=== PATIENT | male | born 1970 | race Two or more races ===

== ENCOUNTER 2018-11-07 18:38 | Inpatient (IN) | payer SELFPAY ==
[~2018-11-07] VITALS: Ht 182.9 cm; Wt 108.2 kg
[2018-11-07 20:05] LABS: Basophils # (auto) 0.1 uL; Eosinophils # (auto) 0 uL; Hemoglobin 13.4 g/dL (13.5-17.5)
[2018-11-07 20:07] LABS: Basophils % (auto) 0.7 % (0.0-2.0); Eosinophils % (auto) 0.2 % (0.0-7.0); Hematocrit 42.2 % (41.0-53.0); Lymphocytes # (auto) 1.4 uL; Lymphocytes % (auto) 8.8 % (10.0-50.0); Mean Corpuscular Hemoglobin 26.9 pg (28.0-32.0); Mean Corpuscular Hgb Conc. 31.8 g/dL (32.0-36.0); Mean Corpuscular Volume 84.7 fL (80.0-100.0); Monocytes # (auto) 1.6 uL; Monocytes % (auto) 10.3 % (0.0-12.0); Neutrophils # (auto) 12.7 uL; Red Blood Cells 4.99 10^6/uL (4.5-5.90); Red Cell Distribution Width 13.6 % (11.8-14.3); White Blood Cell 15.9 10^3/uL (4.4-10.8)
[2018-11-07 20:20] LABS: Albumin 2.9 g/dL (3.4-5.0); Anion Gap 20 (5-15); BUN/Creatinine Ratio 12.8; Blood Urea Nitrogen 14 mg/dL (7-18); Calcium 8.9 mg/dL (8.5-10.1); Carbon Dioxide 13 mmol/L (21-32); Chloride 99 mmol/L (98-107); GFR African American 93 mL/min; GFR Non-African American 77 mL/min; Magnesium 2.1 mg/dL (1.6-2.6); Potassium 4.1 mmol/L (3.5-5.1); Sodium 132 mmol/L (136-145)
[2018-11-07 20:37] LABS: Glucose 456 mg/dL (74-106)
[2018-11-07 20:50] LABS: Alanine Aminotransferase 46 U/L (16-61); Alkaline Phosphatase 132 U/L (45-117); Aspartate Aminotransferase 18 U/L (15-37); Bilirubin, Total 0.9 mg/dL (0.2-1.0); Total Protein 8.7 g/dL (6.4-8.2)
[2018-11-07 21:12] LABS: Platelet Count (auto) 532 10^3/uL (140-450)
[2018-11-08] MEDS ORDERED: SODIUM CHLORIDE 0.9% 1,000 ML IV ONE (05:30)
[2018-11-08] MEDS ORDERED: InsuLIN REG 1unit/0.01ml Soln (100units/ml) IV ONE (05:30)
[2018-11-08 05:56] LABS: Urine Amorphous Crystal FEW /hpf (None Seen); Urine Bacteria FEW /hpf (None Seen); Urine Blood Negative /uL (Negative); Urine Hyaline Cast FEW /lpf (0 - 2); Urine Specific Gravity 1.032 (1.001-1.035); Urine WBC 1 /hpf (0 - 3)
[2018-11-08] MEDS ORDERED: ACETAMINOPHEN 325 MG TAB PO PRN (07:45)
[2018-11-08] MEDS ORDERED: ONDANSETRON HCL 4 MG/2 ML VIAL IV PRN (07:45)
[2018-11-08] MEDS ORDERED: TEMAZEPAM 15 MG CAP PO PRN (07:45)
[2018-11-08] MEDS ORDERED: NITROGLYCERIN 0.4 MG SL TAB SL PRN (07:45)
[2018-11-08] MEDS ORDERED: MORPHINE SULF INJ 2 MG/ML SYRINGE 1ML IV PRN (07:45)
[2018-11-08] MEDS ORDERED: DEXTROSE (50%) 50ML SYRG IV PRN (09:30)
[2018-11-08] MEDS: METOPROLOL TARTRATE 25 MG TAB PO SCH ×3 (10:17→22:15)
[2018-11-08] MEDS: ASPirin 81 mg TAB PO SCH (10:17)
[2018-11-08] MEDS: FAMOTIDINE 20 MG TAB PO SCH ×2 (10:18→22:16)
[2018-11-08] MEDS: InsuLIN REG 1unit/0.01ml Soln (100units/ml) SC SCH ×3 (11:47→22:31)
[2018-11-08] MEDS: ACCU-CHEK COMFORT CURVE STRIP VI SCH ×3 (11:48→22:16)
--- NOTE | 2018-11-08 12:15 | NUR ---
PATIENT RECEIVED FROM ER The patient is received alert and oriented times four with no SOB or s/s of distress at this time. The patient is resting in bed in the lowest position with call light within reach, will continue to monitor and POC.
[2018-11-08 13:00] VITALS: BP 142/82
[2018-11-08] MEDS ORDERED: IOHEXOL 350 MG/ML 100ML IJ ONE ×2 (13:52→14:33)
[2018-11-08] MEDS ORDERED: METF-929 PO (14:08)
[2018-11-08] MEDS ORDERED: PIOG1TAB37 PO (14:08)
[2018-11-08 14:36] LABS: Cholesterol 95 mg/dL (< 200); Triglycerides 62 mg/dL (< 150)
[2018-11-08 14:39] LABS: HDL Cholesterol 30 mg/dL (40-59); LDL Cholesterol 56 mg/dL (< 100)
--- NOTE | 2018-11-08 15:06 | NUR ---
Respiratory note: DR. LOOMIS PAGED REGARDING CRITICAL ABG RESULTS.
[2018-11-08 15:10] VITALS: BP_SYST 116; BP_SYST 125; BP_SYST 136; BP_DIAS 78; BP_DIAS 83; BP_DIAS 86
[2018-11-08 16:36] LABS: BUN/Creatinine Ratio 13.3; Calcium 8.6 mg/dL (8.5-10.1); Potassium 3.7 mmol/L (3.5-5.1)
[2018-11-08 17:00] VITALS: BP 124/88
--- NOTE | 2018-11-08 19:40 | NUR ---
Opening Shift Note Assumed care of patient, awake and alert. Family at bedside. No S/S of distress/SOB or pain. Bed in lowest locked position, side rails up x2, call light within reach. Instructed on POC and to call for assist PRN, will continue to monitor for changes Q1hr and PRN.
[2018-11-08 21:00] VITALS: BP 125/85
[2018-11-08] MEDS: ATORVASTATIN 20 MG TAB PO SCH (22:15)
[2018-11-09 04:30] VITALS: BP 117/70
[2018-11-09] MEDS: InsuLIN REG 1unit/0.01ml Soln (100units/ml) SC SCH ×4 (06:27→21:15)
[2018-11-09] MEDS: ACCU-CHEK COMFORT CURVE STRIP VI SCH ×4 (06:27→21:01)
--- NOTE | 2018-11-09 06:42 | NUR ---
Closing Note Patient lying in bed, awake and alert. Bed in lowest locked position, side rails up x2, call light within reach. No s/s of distress. Will endorse care to dayshift RN.
[2018-11-09 07:16] LABS: Calcium 8.3 mg/dL (8.5-10.1); Potassium 3.3 mmol/L (3.5-5.1)
[2018-11-09 07:18] LABS: Basophils # (auto) 0.1 uL; Basophils % (auto) 0.6 % (0.0-2.0); Eosinophils # (auto) 0.1 uL; Hematocrit 35.8 % (41.0-53.0); Lymphocytes # (auto) 2.1 uL; Lymphocytes % (auto) 18.8 % (10.0-50.0); Mean Corpuscular Hemoglobin 27.4 pg (28.0-32.0); Mean Corpuscular Hgb Conc. 33.5 g/dL (32.0-36.0); Mean Corpuscular Volume 81.8 fL (80.0-100.0); Monocytes # (auto) 1.1 uL; Monocytes % (auto) 9.8 % (0.0-12.0); Neutrophils # (auto) 7.6 uL; Neutrophils % (auto) 69.8 % (37.0-80.0); Nucleated Red Blood Cells % 0.1 %; Platelet Count (auto) 423 10^3/uL (140-450); Red Blood Cells 4.37 10^6/uL (4.5-5.90); Red Cell Distribution Width 13.5 % (11.8-14.3); White Blood Cell 10.9 10^3/uL (4.4-10.8)
--- NOTE | 2018-11-09 07:30 | NUR ---
Opening Shift Note Assumed care of patient, awake and alert. No S/S of distress/SOB or pain. Instructed on POC and to call for assist PRN, will continue to monitor. Bed locked in the lowest position. Bed rails up x2. Call light in reach.
[2018-11-09] MEDS: FAMOTIDINE 20 MG TAB PO SCH ×2 (08:59→20:59)
[2018-11-09 09:00] VITALS: BP_SYST 124; BP_SYST 140; BP_DIAS 74; BP_DIAS 77
[2018-11-09] MEDS: ASPirin 81 mg TAB PO SCH (09:00)
[2018-11-09] MEDS: METOPROLOL TARTRATE 25 MG TAB PO SCH ×2 (09:01→21:00)
[2018-11-09 10:01] VITALS: BP 131/81
--- NOTE | 2018-11-09 10:59 | NUR ---
MD AWARE MD AWARE OF PATIENTS POTASSIUM OF 3.3. NEW ORDER RECEIVED. ORDER READ BACK AND VERIFIED.
[2018-11-09] MEDS ORDERED: POTASSIUM CHL 20 Meq TABLET PO ONE (11:00)
--- NOTE | 2018-11-09 11:35 | NUR ---
AWARE DR. LOYN AWARE OF PATIENTS TRENDING BLOOD GLUCOSE. NO NEW ORDERS RECEIVED.
[2018-11-09 13:00] VITALS: BP_SYST 108; BP_SYST 123; BP_SYST 125; BP_DIAS 76; BP_DIAS 79; BP_DIAS 84
--- NOTE | 2018-11-09 13:07 | NUR ---
DRUG SCREEN URINE OBTAINED AND SENT TO LAB.
[2018-11-09 14:08] LABS: Alcohol, Urine < 3.0 mg/dL (0-5); Amphetamine Screen, Urine NEGATIVE (NEGATIVE); Barbiturate Scree,Urine NEGATIVE (NEGATIVE); Benzodiazephine Screen, Urine NEGATIVE (NEGATIVE); Cannabinoid Screen, Urine NEGATIVE (NEGATIVE); Cocaine Screen, Urine NEGATIVE (NEGATIVE); Opiate Scree,Urine NEGATIVE (NEGATIVE); Phencyclidine Screen, Urine NEGATIVE (NEGATIVE)
[2018-11-09 16:42] VITALS: BP 132/83
--- NOTE | 2018-11-09 19:05 | NUR ---
CLOSING NOTE Patient is awake and alert. No S/S of distress/SOB or pain. Bed locked in the lowest position. Bed rails up x2. Call light in reach. Endorsed care to business development recruiter RN.
[2018-11-09] MEDS: ATORVASTATIN 20 MG TAB PO SCH (21:00)
[2018-11-09 22:00] VITALS: BP_SYST 125; BP_SYST 138; BP_SYST 139; BP_DIAS 89; BP_DIAS 90; BP_DIAS 91
--- NOTE | 2018-11-09 22:00 | NUR ---
Blood Sugar Blood sugar 451, 424 on recheck. 10 units administered as ordered and post tronic machine operator hospitalist paged. Awaiting call back at this time. Will continue care.
--- NOTE | 2018-11-09 23:02 | NUR ---
Hospitalist Returned Page Roxana Gage DIGITAL TECHNICIAN returned page, no new orders at this time. Will continue care.
[2018-11-10 05:18] VITALS: BP_SYST 102; BP_SYST 115; BP_SYST 120; BP_DIAS 70; BP_DIAS 74
[2018-11-10] MEDS: ACCU-CHEK COMFORT CURVE STRIP VI SCH ×2 (06:35→11:30)
[2018-11-10] MEDS: InsuLIN REG 1unit/0.01ml Soln (100units/ml) SC SCH ×2 (06:38→11:30)
--- NOTE | 2018-11-10 07:30 | NUR ---
RECEIVED REPORT FROM NIGHT NURSE. PATIENT RESTING IN BED, NO DISTRESS NOTED. WILL CONTINUE TO MONITOR.
[2018-11-10 07:33] LABS: Basophils # (auto) 0.1 uL; Eosinophils # (auto) 0.1 uL; Lymphocytes # (auto) 2.2 uL; Potassium 3.4 mmol/L (3.5-5.1); Red Cell Distribution Width 13.6 % (11.8-14.3); White Blood Cell 10.5 10^3/uL (4.4-10.8)
[2018-11-10 07:35] LABS: Basophils % (auto) 0.8 % (0.0-2.0); Eosinophils % (auto) 0.8 % (0.0-7.0); Hematocrit 38.1 % (41.0-53.0); Hemoglobin 12.4 g/dL (13.5-17.5); Lymphocytes % (auto) 21.3 % (10.0-50.0); Mean Corpuscular Hemoglobin 26.9 pg (28.0-32.0); Mean Corpuscular Hgb Conc. 32.7 g/dL (32.0-36.0); Mean Corpuscular Volume 82.3 fL (80.0-100.0); Monocytes # (auto) 0.9 uL; Neutrophils # (auto) 7.2 uL; Neutrophils % (auto) 68.1 % (37.0-80.0); Nucleated Red Blood Cells % 0.1 %; Platelet Count (auto) 436 10^3/uL (140-450); Red Blood Cells 4.63 10^6/uL (4.5-5.90)
[2018-11-10 07:40] LABS: Albumin 2.3 g/dL (3.4-5.0); BUN/Creatinine Ratio 19.5; Bilirubin, Total 0.5 mg/dL (0.2-1.0); Calcium 8.1 mg/dL (8.5-10.1); Total Protein 6.9 g/dL (6.4-8.2)
[2018-11-10 09:00] VITALS: BP 118/66
[2018-11-10] MEDS: FAMOTIDINE 20 MG TAB PO SCH (09:41)
[2018-11-10] MEDS: ASPirin 81 mg TAB PO SCH (09:41)
[2018-11-10] MEDS: METOPROLOL TARTRATE 25 MG TAB PO SCH (09:42)
--- NOTE | 2018-11-10 10:43 | NUR ---
DOCTOR LYON AT BEDSIDE.
--- NOTE | 2018-11-10 14:23 | NUR ---
Discharge instructions given as ordered. Encourage to follow up with PMD as instructed. All questions and concerns addressed. Patient verbalized understanding. Medication reconciliation form completed and copy given to patient. Home medications held in Pharmacy returned to patient, and needed vaccines given. IV removed with catheter intact, pressure dressing applied. Telemetry unit returned to ICU. Patient taken to vehicle via wheelchair with all personal belongings, accompanied by staff and family member. No distress noted at time of departure.
== END 2018-11-10 14:00 | disposition home or self-care (01) | DRG 638 ==
LOC: ER 18:44 → TELE 18:45 → TELE-WESTW 11-08 12:19
PROVIDERS: ADMIT Nurse Practitioner; ATTEND Nurse Practitioner
DX: E11.10 Type 2 diabetes mellitus with ketoacidosis without coma (principal); E87.1 Hypo-osmolality and hyponatremia; I24.9 Acute ischemic heart disease, unspecified; R65.10 Systemic inflammatory response syndrome (SIRS) of non-infectious origin without acute organ dysfunction; E78.00 Pure hypercholesterolemia, unspecified; E66.01 Morbid (severe) obesity due to excess calories; E86.0 Dehydration; E78.5 Hyperlipidemia, unspecified; R07.89 Other chest pain; I10 Essential (primary) hypertension; J45.909 Unspecified asthma, uncomplicated; Z83.3 Family history of diabetes mellitus; Z91.14 Patient's other noncompliance with medication regimen; Z68.32 Body mass index [BMI] 32.0-32.9, adult
CPT/HCPCS: 36415; 36600; 71046; 71275; 80048; 80053; 80061; 80307; 81001; 82805; 82962; 83036; 83605; 83735; 83880; 84443; 84484; 85025; 85379; 93005; 93306; 93970; 96361; 96374; G0378; J1815

== ENCOUNTER 2019-02-27 13:42 | Inpatient (IN) | payer MEDICAID ==
[~2019-02-27] VITALS: Ht 182.9 cm; Wt 108.6 kg
[~2019-02-27 13:42] MED LIST: METF-929 PO; PIOG1TAB37 PO
[2019-02-27] MEDS ORDERED: ASPirin 81 mg TAB PO ONE (15:15)
[2019-02-27] MEDS ORDERED: FUROSEMIDE 40 MG/4 ML VIAL IV ONE (15:45)
[2019-02-27 15:55] LABS: Basophils # (auto) 0.1 uL; Basophils % (auto) 1.3 % (0.0-2.0); Eosinophils # (auto) 0.1 uL; Eosinophils % (auto) 1.5 % (0.0-7.0); Hematocrit 40.5 % (41.0-53.0); Hemoglobin 13.5 g/dL (13.5-17.5); Lymphocytes # (auto) 1.7 uL; Lymphocytes % (auto) 17.7 % (10.0-50.0); Mean Corpuscular Hemoglobin 27.2 pg (28.0-32.0); Mean Corpuscular Hgb Conc. 33.3 g/dL (32.0-36.0); Mean Corpuscular Volume 81.7 fL (80.0-100.0); Monocytes # (auto) 0.9 uL; Monocytes % (auto) 9.2 % (0.0-12.0); Neutrophils # (auto) 6.8 uL; Neutrophils % (auto) 70.3 % (37.0-80.0); Nucleated Red Blood Cells % 0.1 %; Platelet Count (auto) 337 10^3/uL (140-450); Red Blood Cells 4.96 10^6/uL (4.5-5.90); Red Cell Distribution Width 17.8 % (11.8-14.3); White Blood Cell 9.7 10^3/uL (4.4-10.8)
[2019-02-27 16:00] LABS: Anion Gap 4 (5-15); Blood Urea Nitrogen 14 mg/dL (7-18); Calcium 9.4 mg/dL (8.5-10.1); Carbon Dioxide 28 mmol/L (21-32); Chloride 109 mmol/L (98-107); Glucose 131 mg/dL (74-106); Potassium 3.6 mmol/L (3.5-5.1); Sodium 141 mmol/L (136-145)
[2019-02-27 16:05] LABS: Alanine Aminotransferase 20 U/L (16-61); Alkaline Phosphatase 151 U/L (45-117); Aspartate Aminotransferase 19 U/L (15-37); Bilirubin, Total 1.7 mg/dL (0.2-1.0); GFR African American 94 mL/min; GFR Non-African American 78 mL/min; Total Protein 8.1 g/dL (6.4-8.2)
[2019-02-27] MEDS ORDERED: LACTULOSE 20Gm/30ML SOLN PO PRN (18:45)
[2019-02-27] MEDS ORDERED: PROMETHAZINE HCL 25 MG/ML 1ML IV PRN (18:45)
[2019-02-27] MEDS ORDERED: DEXTROSE (50%) 50ML SYRG IV PRN (18:45)
[2019-02-27] MEDS ORDERED: TEMAZEPAM 15 MG CAP PO PRN (18:45)
[2019-02-27] MEDS ORDERED: MORPHINE SULF INJ 2 MG/ML SYRINGE 1ML IV PRN (18:45)
[2019-02-27] MEDS ORDERED: NITROGLYCERIN 0.4 MG SL TAB SL PRN (18:45)
[2019-02-27] MEDS ORDERED: ACETAMINOPHEN 500 MG TAB PO PRN (18:45)
[2019-02-27] MEDS ORDERED: traMADol HCL 50 MG TAB PO PRN (18:45)
[2019-02-27] MEDS ORDERED: ALBUTEROL SULF 2.5 MG/0.5ML(0.5%) NEB SOLN NEB PRN (18:45)
[2019-02-27 20:55] VITALS: BP 127/86
[2019-02-27 22:00] VITALS: BP 127/86
[2019-02-27] MEDS: InsuLIN REG 1unit/0.01ml Soln (100units/ml) SC SCH (22:00)
[2019-02-27] MEDS: ATORVASTATIN 20 MG TAB PO SCH (22:15)
[2019-02-27] MEDS: CARVEDILOL 3.125 MG TAB PO SCH (22:16)
[2019-02-27] MEDS: ACCU-CHEK COMFORT CURVE STRIP VI SCH (22:17)
[2019-02-27] MEDS: ALBUTEROL SULF 2.5 MG/0.5ML(0.5%) NEB SOLN NEB SCH (22:41)
[2019-02-27 22:43] VITALS: BP 127/86
[2019-02-27] MEDS: SODIUM CHLOR 0.9% PF (SALINE LOCK) 10ML VIAL/SYR IV SCH (22:48)
[2019-02-27] MEDS ORDERED: POTA10TA79 PO (23:33)
[2019-02-27] MEDS ORDERED: FURO40TA4 PO (23:33)
[2019-02-28] MEDS ORDERED: INSR100KIT SC (01:46)
[2019-02-28] MEDS ORDERED: INSREG3 SC (01:49)
[2019-02-28 05:00] VITALS: BP 116/80
[2019-02-28] MEDS: SODIUM CHLOR 0.9% PF (SALINE LOCK) 10ML VIAL/SYR IV SCH ×3 (05:23→21:55)
[2019-02-28] MEDS: ALBUTEROL SULF 2.5 MG/0.5ML(0.5%) NEB SOLN NEB SCH ×3 (06:06→18:26)
[2019-02-28] MEDS: InsuLIN REG 1unit/0.01ml Soln (100units/ml) SC SCH ×4 (07:00→21:56)
[2019-02-28] MEDS: ACCU-CHEK COMFORT CURVE STRIP VI SCH ×4 (07:03→21:56)
[2019-02-28 08:00] VITALS: BP 121/82
[2019-02-28 09:00] VITALS: BP 121/82
[2019-02-28] MEDS ORDERED: cefTRIAXone 1GM/50ML D5W 50 ML IV SCH (09:00)
[2019-02-28] MEDS ORDERED: AZITHROMYCIN 500MG/ 250ML 250 ML IV SCH (10:00)
[2019-02-28] MEDS ORDERED: NITROGLYCERIN 0.2MG/HR TOPICAL PATCH TD SCH (10:00)
[2019-02-28] MEDS ORDERED: ASPirin 81 mg TAB PO SCH (10:00)
[2019-02-28] MEDS ORDERED: FUROSEMIDE 40 MG/4 ML VIAL IV SCH (10:00)
[2019-02-28] MEDS ORDERED: POTASSIUM CHL 20 Meq TABLET PO SCH (10:00)
[2019-02-28] MEDS: ENOXAPARIN SOD 40 MG/0.4 ML SYRINGE SC SCH (11:49)
[2019-02-28] MEDS: ENALAPRIL MALEATE 2.5 MG TAB PO SCH (11:50)
[2019-02-28] MEDS: CARVEDILOL 3.125 MG TAB PO SCH ×2 (11:50→21:53)
[2019-02-28 13:00] VITALS: BP 117/88
[2019-02-28 16:54] VITALS: BP 113/73
[2019-02-28] MEDS: POTASSIUM CHL 20 Meq TABLET PO SCH (17:49)
[2019-02-28] MEDS: FUROSEMIDE 40 MG/4 ML VIAL IV SCH (17:49)
[2019-02-28] MEDS: ATORVASTATIN 20 MG TAB PO SCH (21:52)
[2019-02-28 22:00] VITALS: BP 120/71
[2019-03-01] MEDS: ALBUTEROL SULF 2.5 MG/0.5ML(0.5%) NEB SOLN NEB SCH ×4 (00:29→19:36)
[2019-03-01 04:51] VITALS: BP 113/83
[2019-03-01] MEDS: POTASSIUM CHL 20 Meq TABLET PO SCH ×2 (06:23→18:32)
[2019-03-01] MEDS: ACCU-CHEK COMFORT CURVE STRIP VI SCH ×4 (06:31→22:28)
[2019-03-01] MEDS: InsuLIN REG 1unit/0.01ml Soln (100units/ml) SC SCH ×4 (06:31→22:28)
[2019-03-01] MEDS: SODIUM CHLOR 0.9% PF (SALINE LOCK) 10ML VIAL/SYR IV SCH ×3 (06:32→22:00)
[2019-03-01] MEDS: FUROSEMIDE 40 MG/4 ML VIAL IV SCH ×2 (06:32→18:32)
[2019-03-01 08:00] VITALS: BP 119/85
[2019-03-01 08:18] VITALS: BP 119/85
[2019-03-01] MEDS: ENALAPRIL MALEATE 2.5 MG TAB PO SCH (09:05)
[2019-03-01] MEDS: ENOXAPARIN SOD 40 MG/0.4 ML SYRINGE SC SCH (09:05)
[2019-03-01] MEDS: CARVEDILOL 3.125 MG TAB PO SCH ×2 (09:06→22:24)
[2019-03-01 11:47] LABS: BUN/Creatinine Ratio 15.4; Calcium 9.4 mg/dL (8.5-10.1); Potassium 3.5 mmol/L (3.5-5.1)
[2019-03-01] MEDS ORDERED: SPIRONOLACTONE 25 MG TAB PO ONE (13:00)
[2019-03-01 13:17] VITALS: BP 106/81
[2019-03-01 16:56] VITALS: BP 119/85
[2019-03-01] MEDS: SPIRONOLACTONE 25 MG TAB PO SCH (18:32)
[2019-03-01 22:00] VITALS: BP 119/84
[2019-03-01] MEDS: ATORVASTATIN 20 MG TAB PO SCH (22:22)
[2019-03-02] MEDS: ALBUTEROL SULF 2.5 MG/0.5ML(0.5%) NEB SOLN NEB SCH ×4 (00:23→18:21)
[2019-03-02 05:33] LABS: Basophils # (auto) 0.1 uL; Basophils % (auto) 1.2 % (0.0-2.0); Eosinophils # (auto) 0.2 uL; Eosinophils % (auto) 2.4 % (0.0-7.0); Hematocrit 36.3 % (41.0-53.0); Hemoglobin 12.2 g/dL (13.5-17.5); Lymphocytes # (auto) 1.3 uL; Lymphocytes % (auto) 17.8 % (10.0-50.0); Mean Corpuscular Hemoglobin 27.6 pg (28.0-32.0); Mean Corpuscular Hgb Conc. 33.7 g/dL (32.0-36.0); Mean Corpuscular Volume 81.8 fL (80.0-100.0); Monocytes # (auto) 0.8 uL; Neutrophils # (auto) 5.1 uL; Neutrophils % (auto) 67.6 % (37.0-80.0); Nucleated Red Blood Cells % 0.1 %; Platelet Count (auto) 277 10^3/uL (140-450); Red Blood Cells 4.44 10^6/uL (4.5-5.90); Red Cell Distribution Width 17.4 % (11.8-14.3); White Blood Cell 7.6 10^3/uL (4.4-10.8)
[2019-03-02 05:38] VITALS: BP 108/75
[2019-03-02 05:47] LABS: Calcium 9.1 mg/dL (8.5-10.1); Potassium 3.6 mmol/L (3.5-5.1)
[2019-03-02 05:53] LABS: BUN/Creatinine Ratio 14.7
[2019-03-02] MEDS: FUROSEMIDE 40 MG/4 ML VIAL IV SCH ×2 (06:19→17:48)
[2019-03-02] MEDS: SODIUM CHLOR 0.9% PF (SALINE LOCK) 10ML VIAL/SYR IV SCH ×3 (06:20→22:00)
[2019-03-02] MEDS: POTASSIUM CHL 20 Meq TABLET PO SCH ×2 (06:21→17:49)
[2019-03-02] MEDS: SPIRONOLACTONE 25 MG TAB PO SCH ×2 (06:22→17:49)
[2019-03-02] MEDS: InsuLIN REG 1unit/0.01ml Soln (100units/ml) SC SCH ×4 (06:55→22:04)
[2019-03-02] MEDS: ACCU-CHEK COMFORT CURVE STRIP VI SCH ×4 (06:56→22:00)
[2019-03-02 08:00] VITALS: BP 123/85
[2019-03-02] MEDS: CARVEDILOL 3.125 MG TAB PO SCH ×2 (09:05→21:59)
[2019-03-02] MEDS: ENOXAPARIN SOD 40 MG/0.4 ML SYRINGE SC SCH (09:06)
[2019-03-02] MEDS: ENALAPRIL MALEATE 2.5 MG TAB PO SCH (09:06)
[2019-03-02 09:28] VITALS: BP 123/85
[2019-03-02] MEDS ORDERED: SPIRONOLACTONE 25 MG TAB PO ONE (12:00)
[2019-03-02 12:30] VITALS: BP 95/65
[2019-03-02 17:15] VITALS: BP 106/79
[2019-03-02] MEDS: ATORVASTATIN 20 MG TAB PO SCH (21:59)
[2019-03-02 22:00] VITALS: BP 119/81
[2019-03-03] MEDS: ALBUTEROL SULF 2.5 MG/0.5ML(0.5%) NEB SOLN NEB SCH ×4 (00:36→19:04)
[2019-03-03 00:43] VITALS: BP 119/81
[2019-03-03 05:26] VITALS: BP 129/90
[2019-03-03 06:02] LABS: Basophils # (auto) 0.1 uL; Basophils % (auto) 1.2 % (0.0-2.0); Eosinophils # (auto) 0.2 uL; Eosinophils % (auto) 2.2 % (0.0-7.0); Hemoglobin 12.3 g/dL (13.5-17.5); Lymphocytes # (auto) 1.7 uL; Lymphocytes % (auto) 20.7 % (10.0-50.0); Mean Corpuscular Hemoglobin 27.4 pg (28.0-32.0); Mean Corpuscular Hgb Conc. 33.2 g/dL (32.0-36.0); Mean Corpuscular Volume 82.4 fL (80.0-100.0); Monocytes % (auto) 12.1 % (0.0-12.0); Neutrophils # (auto) 5.3 uL; Neutrophils % (auto) 63.8 % (37.0-80.0); Nucleated Red Blood Cells % 0.1 %; Platelet Count (auto) 288 10^3/uL (140-450); Red Blood Cells 4.48 10^6/uL (4.5-5.90); Red Cell Distribution Width 17.9 % (11.8-14.3); White Blood Cell 8.3 10^3/uL (4.4-10.8)
[2019-03-03 06:23] LABS: Calcium 9.3 mg/dL (8.5-10.1); Magnesium 2.2 mg/dL (1.6-2.6); Potassium 3.6 mmol/L (3.5-5.1)
[2019-03-03 06:25] LABS: BUN/Creatinine Ratio 15.5
[2019-03-03] MEDS: InsuLIN REG 1unit/0.01ml Soln (100units/ml) SC SCH ×4 (07:00→21:46)
[2019-03-03] MEDS: FUROSEMIDE 40 MG/4 ML VIAL IV SCH ×2 (07:34→18:44)
[2019-03-03] MEDS: SPIRONOLACTONE 25 MG TAB PO SCH ×2 (07:35→18:45)
[2019-03-03] MEDS: SODIUM CHLOR 0.9% PF (SALINE LOCK) 10ML VIAL/SYR IV SCH ×3 (07:35→21:45)
[2019-03-03] MEDS: ACCU-CHEK COMFORT CURVE STRIP VI SCH ×4 (07:35→21:45)
[2019-03-03] MEDS: POTASSIUM CHL 20 Meq TABLET PO SCH ×2 (07:36→18:44)
[2019-03-03 08:32] VITALS: BP 117/87
[2019-03-03] MEDS: ENOXAPARIN SOD 40 MG/0.4 ML SYRINGE SC SCH (09:53)
[2019-03-03] MEDS: CARVEDILOL 3.125 MG TAB PO SCH ×2 (09:54→21:43)
[2019-03-03] MEDS: ENALAPRIL MALEATE 2.5 MG TAB PO SCH (09:54)
[2019-03-03 12:30] VITALS: BP 113/76
[2019-03-03 16:59] VITALS: BP 112/87
[2019-03-03] MEDS ORDERED: ALBUTEROL MEDNEB 2.5 mg/3ml NEB ONE (18:37)
[2019-03-03] MEDS: ATORVASTATIN 20 MG TAB PO SCH (21:32)
[2019-03-03 22:00] VITALS: BP 111/77
[2019-03-04] MEDS: ALBUTEROL SULF 2.5 MG/0.5ML(0.5%) NEB SOLN NEB SCH ×4 (00:24→19:12)
[2019-03-04 05:03] VITALS: BP 112/72
[2019-03-04] MEDS: POTASSIUM CHL 20 Meq TABLET PO SCH ×2 (05:36→17:06)
[2019-03-04] MEDS: FUROSEMIDE 40 MG/4 ML VIAL IV SCH (05:36)
[2019-03-04] MEDS: SODIUM CHLOR 0.9% PF (SALINE LOCK) 10ML VIAL/SYR IV SCH ×3 (05:36→21:56)
[2019-03-04] MEDS: SPIRONOLACTONE 25 MG TAB PO SCH ×2 (05:36→17:06)
[2019-03-04] MEDS: InsuLIN REG 1unit/0.01ml Soln (100units/ml) SC SCH ×4 (05:37→22:00)
[2019-03-04] MEDS: ACCU-CHEK COMFORT CURVE STRIP VI SCH ×4 (05:37→22:00)
[2019-03-04] MEDS ORDERED: ALBUTEROL MEDNEB 2.5 mg/3ml NEB ONE ×3 (05:54→11:19)
[2019-03-04 07:08] LABS: Potassium 3.7 mmol/L (3.5-5.1)
[2019-03-04 07:23] LABS: BUN/Creatinine Ratio 16.8; Calcium 9.3 mg/dL (8.5-10.1)
[2019-03-04 09:00] VITALS: BP 120/69
[2019-03-04] MEDS: CARVEDILOL 3.125 MG TAB PO SCH ×2 (09:33→22:05)
[2019-03-04] MEDS: ENALAPRIL MALEATE 2.5 MG TAB PO SCH (09:33)
[2019-03-04] MEDS ORDERED: BUMETANIDE 2.5mg/10ml (0.25 mg/ml) INJ IV ONE (11:30)
[2019-03-04 13:00] VITALS: BP 116/69
[2019-03-04] MEDS: BUMETANIDE 2.5mg/10ml (0.25 mg/ml) INJ IV SCH (17:05)
[2019-03-04 17:21] VITALS: BP 125/79
[2019-03-04 20:00] VITALS: BP 112/74
[2019-03-04 22:00] VITALS: BP 127/79
[2019-03-04] MEDS: ATORVASTATIN 20 MG TAB PO SCH (22:05)
[2019-03-05] MEDS: ALBUTEROL SULF 2.5 MG/0.5ML(0.5%) NEB SOLN NEB SCH ×4 (00:34→18:45)
[2019-03-05 05:00] VITALS: BP 107/72
[2019-03-05] MEDS: SODIUM CHLOR 0.9% PF (SALINE LOCK) 10ML VIAL/SYR IV SCH ×3 (06:06→21:56)
[2019-03-05] MEDS: BUMETANIDE 2.5mg/10ml (0.25 mg/ml) INJ IV SCH ×2 (06:06→18:05)
[2019-03-05] MEDS: SPIRONOLACTONE 25 MG TAB PO SCH ×2 (06:07→18:05)
[2019-03-05] MEDS: POTASSIUM CHL 20 Meq TABLET PO SCH ×2 (06:07→18:05)
[2019-03-05] MEDS: InsuLIN REG 1unit/0.01ml Soln (100units/ml) SC SCH ×4 (06:36→21:56)
[2019-03-05] MEDS: ACCU-CHEK COMFORT CURVE STRIP VI SCH ×4 (06:37→21:57)
[2019-03-05 08:00] VITALS: BP 109/75
[2019-03-05 09:00] VITALS: BP 109/75
[2019-03-05] MEDS ORDERED: BUMETANIDE 2.5mg/10ml (0.25 mg/ml) INJ IV ONE (10:00)
[2019-03-05] MEDS: ENALAPRIL MALEATE 2.5 MG TAB PO SCH (12:03)
[2019-03-05] MEDS: CARVEDILOL 3.125 MG TAB PO SCH ×2 (12:03→21:56)
[2019-03-05 13:00] VITALS: BP 115/78
[2019-03-05 16:44] VITALS: BP 113/76
[2019-03-05] MEDS: ATORVASTATIN 20 MG TAB PO SCH (21:56)
[2019-03-05 22:08] VITALS: BP 104/69
[2019-03-06] MEDS: ALBUTEROL SULF 2.5 MG/0.5ML(0.5%) NEB SOLN NEB SCH ×4 (00:01→18:55)
[2019-03-06 00:14] VITALS: BP 104/69
[2019-03-06 05:55] LABS: BUN/Creatinine Ratio 16.8; Calcium 9.5 mg/dL (8.5-10.1); Potassium 3.6 mmol/L (3.5-5.1)
[2019-03-06 06:04] VITALS: BP 96/71
[2019-03-06] MEDS: InsuLIN REG 1unit/0.01ml Soln (100units/ml) SC SCH ×4 (06:20→21:50)
[2019-03-06] MEDS: ACCU-CHEK COMFORT CURVE STRIP VI SCH ×4 (06:20→21:52)
[2019-03-06] MEDS: SODIUM CHLOR 0.9% PF (SALINE LOCK) 10ML VIAL/SYR IV SCH ×3 (06:20→21:49)
[2019-03-06] MEDS: SPIRONOLACTONE 25 MG TAB PO SCH ×2 (06:20→10:00)
[2019-03-06] MEDS: BUMETANIDE 2.5mg/10ml (0.25 mg/ml) INJ IV SCH ×2 (06:20→17:51)
[2019-03-06] MEDS: POTASSIUM CHL 20 Meq TABLET PO SCH ×2 (06:20→17:52)
[2019-03-06 09:00] VITALS: BP 113/70
[2019-03-06] MEDS: CARVEDILOL 3.125 MG TAB PO SCH ×2 (09:39→21:50)
[2019-03-06] MEDS: ENALAPRIL MALEATE 2.5 MG TAB PO SCH (09:40)
[2019-03-06] MEDS ORDERED: metOLazone 5 MG TAB PO ONE (09:45)
[2019-03-06] MEDS: metOLazone 5 MG TAB PO SCH (10:00)
[2019-03-06 13:00] VITALS: BP 95/64
[2019-03-06 17:13] VITALS: BP 104/69
[2019-03-06] MEDS: ATORVASTATIN 20 MG TAB PO SCH (21:50)
[2019-03-06 22:00] VITALS: BP 106/71
[2019-03-07] MEDS: ALBUTEROL SULF 2.5 MG/0.5ML(0.5%) NEB SOLN NEB SCH ×4 (00:28→19:22)
[2019-03-07 04:30] VITALS: BP 102/70
[2019-03-07] MEDS: BUMETANIDE 2.5mg/10ml (0.25 mg/ml) INJ IV SCH ×2 (06:06→18:39)
[2019-03-07] MEDS: SODIUM CHLOR 0.9% PF (SALINE LOCK) 10ML VIAL/SYR IV SCH ×3 (06:07→21:46)
[2019-03-07] MEDS: InsuLIN REG 1unit/0.01ml Soln (100units/ml) SC SCH ×4 (06:07→21:48)
[2019-03-07] MEDS: POTASSIUM CHL 20 Meq TABLET PO SCH ×2 (06:07→18:37)
[2019-03-07] MEDS: ACCU-CHEK COMFORT CURVE STRIP VI SCH ×4 (06:07→21:47)
[2019-03-07 09:00] VITALS: BP 111/79
[2019-03-07] MEDS: metOLazone 5 MG TAB PO SCH (09:42)
[2019-03-07] MEDS: CARVEDILOL 3.125 MG TAB PO SCH ×2 (09:43→21:47)
[2019-03-07] MEDS: SPIRONOLACTONE 25 MG TAB PO SCH (09:43)
[2019-03-07 13:00] VITALS: BP 126/93
[2019-03-07 17:00] VITALS: BP 101/67
[2019-03-07] MEDS: ATORVASTATIN 20 MG TAB PO SCH (21:47)
[2019-03-07 22:00] VITALS: BP_SYST 103; BP_SYST 118; BP_DIAS 59; BP_DIAS 81
[2019-03-08] MEDS: ALBUTEROL SULF 2.5 MG/0.5ML(0.5%) NEB SOLN NEB SCH ×5 (00:23→23:53)
[2019-03-08 05:20] VITALS: BP 116/76
[2019-03-08 05:46] LABS: BUN/Creatinine Ratio 18.3; Calcium 9.6 mg/dL (8.5-10.1); Magnesium 1.9 mg/dL (1.6-2.6); Potassium 3.5 mmol/L (3.5-5.1)
[2019-03-08] MEDS: SODIUM CHLOR 0.9% PF (SALINE LOCK) 10ML VIAL/SYR IV SCH ×3 (06:00→22:00)
[2019-03-08] MEDS: POTASSIUM CHL 20 Meq TABLET PO SCH ×2 (06:00→17:49)
[2019-03-08] MEDS: BUMETANIDE 2.5mg/10ml (0.25 mg/ml) INJ IV SCH ×2 (06:00→17:49)
[2019-03-08] MEDS: InsuLIN REG 1unit/0.01ml Soln (100units/ml) SC SCH ×4 (06:30→22:00)
[2019-03-08] MEDS: ACCU-CHEK COMFORT CURVE STRIP VI SCH ×4 (06:30→22:00)
[2019-03-08 09:00] VITALS: BP 131/82
[2019-03-08] MEDS: CARVEDILOL 3.125 MG TAB PO SCH ×2 (10:02→22:56)
[2019-03-08] MEDS: SPIRONOLACTONE 25 MG TAB PO SCH (10:02)
[2019-03-08] MEDS: metOLazone 5 MG TAB PO SCH (10:03)
[2019-03-08] MEDS ORDERED: POTASSIUM CHL 20 Meq TABLET PO ONE (11:45)
[2019-03-08 13:00] VITALS: BP 107/69
[2019-03-08 17:37] VITALS: BP 121/84
[2019-03-08 21:03] VITALS: BP 121/84
[2019-03-08 22:00] VITALS: BP 114/72
[2019-03-08] MEDS: ATORVASTATIN 20 MG TAB PO SCH (22:56)
[2019-03-09 05:00] VITALS: BP 106/68
[2019-03-09] MEDS: POTASSIUM CHL 20 Meq TABLET PO SCH ×2 (05:42→18:27)
[2019-03-09] MEDS: BUMETANIDE 2.5mg/10ml (0.25 mg/ml) INJ IV SCH ×2 (05:43→18:26)
[2019-03-09] MEDS: SODIUM CHLOR 0.9% PF (SALINE LOCK) 10ML VIAL/SYR IV SCH ×3 (05:44→22:23)
[2019-03-09] MEDS: ALBUTEROL SULF 2.5 MG/0.5ML(0.5%) NEB SOLN NEB SCH ×3 (05:48→19:04)
[2019-03-09] MEDS: InsuLIN REG 1unit/0.01ml Soln (100units/ml) SC SCH ×4 (06:27→22:19)
[2019-03-09] MEDS: ACCU-CHEK COMFORT CURVE STRIP VI SCH ×4 (06:27→22:19)
[2019-03-09 08:38] VITALS: BP 107/77
[2019-03-09] MEDS: metOLazone 5 MG TAB PO SCH (09:30)
[2019-03-09] MEDS: CARVEDILOL 3.125 MG TAB PO SCH ×2 (09:31→22:22)
[2019-03-09] MEDS: LEVOFLOXACIN 500MG 100 ML IV SCH (09:31)
[2019-03-09] MEDS: SPIRONOLACTONE 25 MG TAB PO SCH (09:31)
[2019-03-09] MEDS ORDERED: BUMETANIDE 2.5mg/10ml (0.25 mg/ml) INJ IV ONE (12:00)
[2019-03-09 12:13] VITALS: BP 92/63
[2019-03-09 16:33] VITALS: BP 104/78
[2019-03-09 22:00] VITALS: BP 108/75
[2019-03-09] MEDS: ATORVASTATIN 20 MG TAB PO SCH (22:21)
[2019-03-10] MEDS: ALBUTEROL SULF 2.5 MG/0.5ML(0.5%) NEB SOLN NEB SCH ×4 (00:13→18:27)
[2019-03-10 05:00] VITALS: BP 104/72
[2019-03-10 05:14] LABS: Albumin 3.8 g/dL (3.4-5.0); Calcium 10.1 mg/dL (8.5-10.1); Magnesium 1.7 mg/dL (1.6-2.6); Potassium 3.6 mmol/L (3.5-5.1)
[2019-03-10 05:17] LABS: BUN/Creatinine Ratio 21.2; Bilirubin, Total 1.2 mg/dL (0.2-1.0); Total Protein 7.8 g/dL (6.4-8.2)
[2019-03-10] MEDS: BUMETANIDE 2.5mg/10ml (0.25 mg/ml) INJ IV SCH (06:39)
[2019-03-10] MEDS: POTASSIUM CHL 20 Meq TABLET PO SCH (06:39)
[2019-03-10] MEDS: SODIUM CHLOR 0.9% PF (SALINE LOCK) 10ML VIAL/SYR IV SCH ×3 (06:39→22:30)
[2019-03-10] MEDS: ACCU-CHEK COMFORT CURVE STRIP VI SCH ×5 (06:59→22:30)
[2019-03-10] MEDS: InsuLIN REG 1unit/0.01ml Soln (100units/ml) SC SCH ×5 (07:00→22:30)
[2019-03-10 08:00] VITALS: BP 105/74
[2019-03-10] MEDS: LEVOFLOXACIN 500MG 100 ML IV SCH (09:53)
[2019-03-10] MEDS: metOLazone 5 MG TAB PO SCH (09:53)
[2019-03-10] MEDS: CARVEDILOL 3.125 MG TAB PO SCH ×2 (09:54→22:29)
[2019-03-10] MEDS: SPIRONOLACTONE 25 MG TAB PO SCH (09:54)
[2019-03-10 11:26] LABS: INR 1.4 (0.9-1.15)
[2019-03-10 12:00] VITALS: BP 111/67
[2019-03-10 17:00] VITALS: BP 117/81
[2019-03-10 22:00] VITALS: BP 103/72
[2019-03-10] MEDS: ATORVASTATIN 20 MG TAB PO SCH (22:29)
[2019-03-11] VITALS (7 sets, daily range): BP systolic 109–123; BP diastolic 63–79
[2019-03-11] MEDS: ALBUTEROL SULF 2.5 MG/0.5ML(0.5%) NEB SOLN NEB SCH ×4 (00:48→18:33)
[2019-03-11 05:34] LABS: BUN/Creatinine Ratio 23.1; Calcium 9.9 mg/dL (8.5-10.1); Potassium 3.4 mmol/L (3.5-5.1)
[2019-03-11] MEDS: SODIUM CHLOR 0.9% PF (SALINE LOCK) 10ML VIAL/SYR IV SCH ×3 (05:42→22:09)
[2019-03-11] MEDS: CARVEDILOL 3.125 MG TAB PO SCH ×2 (10:17→21:54)
[2019-03-11] MEDS: InsuLIN REG 1unit/0.01ml Soln (100units/ml) SC SCH ×3 (11:29→22:10)
[2019-03-11] MEDS: ACCU-CHEK COMFORT CURVE STRIP VI SCH ×3 (11:30→21:58)
[2019-03-11] MEDS ORDERED: POTASSIUM CHL 20 Meq TABLET PO ONE (13:00)
[2019-03-11] MEDS: ATORVASTATIN 20 MG TAB PO SCH (21:53)
[2019-03-12] MEDS: ALBUTEROL SULF 2.5 MG/0.5ML(0.5%) NEB SOLN NEB SCH ×3 (00:07→11:15)
[2019-03-12 05:00] VITALS: BP 114/75
[2019-03-12 05:35] LABS: BUN/Creatinine Ratio 23.1; Calcium 9.4 mg/dL (8.5-10.1); Potassium 3.4 mmol/L (3.5-5.1)
[2019-03-12] MEDS: SODIUM CHLOR 0.9% PF (SALINE LOCK) 10ML VIAL/SYR IV SCH (05:41)
[2019-03-12] MEDS: InsuLIN REG 1unit/0.01ml Soln (100units/ml) SC SCH (06:17)
[2019-03-12] MEDS: ACCU-CHEK COMFORT CURVE STRIP VI SCH (06:17)
[2019-03-12 08:00] VITALS: BP 111/66
[2019-03-12] MEDS: CARVEDILOL 3.125 MG TAB PO SCH (09:41)
[2019-03-12] MEDS ORDERED: POTASSIUM CHL 20 Meq TABLET PO ONE (10:15)
[2019-03-12 10:47] VITALS: BP 111/70
== END 2019-03-12 11:40 | disposition home or self-care (01) | DRG 194 ==
LOC: ER 13:42 → TELE 13:43 → TELE-CENTR 20:53 → CENTRAL 03-03 11:16
PROVIDERS: ADMIT Internal Medicine; ATTEND Internal Medicine
PROC: 0W993ZZ Drainage of Right Pleural Cavity, Percutaneous Approach (ICD-10-PCS; principal; 2019-03-10)
DX: I11.0 Hypertensive heart disease with heart failure (principal); J18.9 Pneumonia, unspecified organism; J91.8 Pleural effusion in other conditions classified elsewhere; E66.01 Morbid (severe) obesity due to excess calories; I50.43 Acute on chronic combined systolic (congestive) and diastolic (congestive) heart failure; E11.9 Type 2 diabetes mellitus without complications; E78.5 Hyperlipidemia, unspecified; J45.909 Unspecified asthma, uncomplicated; E66.9 Obesity, unspecified; Z79.899 Other long term (current) drug therapy; Z68.32 Body mass index [BMI] 32.0-32.9, adult; Z83.3 Family history of diabetes mellitus; Z82.3 Family history of stroke
CPT/HCPCS: 10022; 32555; 36415; 71045; 71046; 76604; 76942; 80048; 80053; 82550; 82962; 83036; 83735; 83880; 83986; 84443; 84484; 85025; 85379; 85610; 85652; 86141; 87070; 87205; 87804; 89051; 93005; 94640; 96374; G0378; J0696; J1815; J1956

== ENCOUNTER 2020-08-26 11:59 | Inpatient (IN) | payer MEDICAID ==
[~2020-08-26] VITALS: Ht 182.9 cm; Wt 138.0 kg
[~2020-08-26 11:59] MED LIST changes: +BUME1TAB3 PO; +DOX100T PO; +INSREG3 SC; +INSU1INJ19 SC; +METO25TA93 PO; +POTA10TA51 PO; +SPIR25TA8 PO
[2020-08-26] MEDS ORDERED: FUROSEMIDE 40 MG/4 ML VIAL IV ONE (12:15)
[2020-08-26 12:29] LABS: Basophils # (auto) 0.2 10 ^3/uL (0-0.2); Basophils % (auto) 1.1 % (0.0-2.0); Eosinophils # (auto) 0.3 10 ^3/uL (0-0.8); Eosinophils % (auto) 1.9 % (0.0-7.0); Hematocrit 44.4 % (41.0-53.0); Hemoglobin 14.9 g/dL (13.5-17.5); Lymphocytes # (auto) 1.9 10 ^3/uL (0.4-5.4); Lymphocytes % (auto) 12.5 % (10.0-50.0); Mean Corpuscular Hemoglobin 28.8 pg (28.0-32.0); Mean Corpuscular Hgb Conc. 33.6 g/dL (32.0-36.0); Mean Corpuscular Volume 85.5 fL (80.0-100.0); Monocytes # (auto) 0.9 10 ^3/uL (0-1.3); Monocytes % (auto) 5.5 % (0.0-12.0); Neutrophils # (auto) 12.2 10 ^3/uL (1.6-8.6); Nucleated Red Blood Cells % 0.2 %; Platelet Count (auto) 271 10^3/uL (140-450); Red Cell Distribution Width 14.9 % (11.8-14.3); White Blood Cell 15.5 10^3/uL (4.4-10.8)
[2020-08-26 12:46] LABS: Albumin 3.9 g/dL (3.4-5.0); Calcium 8.9 mg/dL (8.5-10.1); Potassium 4.1 mmol/L (3.5-5.1)
[2020-08-26 12:51] LABS: BUN/Creatinine Ratio 12.6; Bilirubin, Total 1.2 mg/dL (0.2-1.0); Total Protein 7.5 g/dL (6.4-8.2)
[2020-08-26] MEDS ORDERED: TEMAZEPAM 15 MG CAP PO PRN (13:30)
[2020-08-26] MEDS ORDERED: NITROGLYCERIN 0.4 MG SL TAB SL PRN (13:30)
[2020-08-26] MEDS ORDERED: traMADol HCL 50 MG TAB PO PRN (13:30)
[2020-08-26] MEDS ORDERED: ENOXAPARIN SOD 150 MG/1 ML SYRINGE SC ONE (13:30)
[2020-08-26] MEDS ORDERED: ACETAMINOPHEN 500 MG TAB PO PRN (13:30)
[2020-08-26] MEDS ORDERED: PROMETHAZINE HCL 25 MG/ML 1ML IV PRN (13:30)
[2020-08-26] MEDS ORDERED: MORPHINE SULF INJ 2 MG/ML SYRINGE 1ML IV PRN ×2 (13:30)
[2020-08-26] MEDS ORDERED: ALBUTEROL SULF 2.5 MG/0.5ML(0.5%) NEB SOLN NEB PRN (13:30)
[2020-08-26] MEDS ORDERED: LACTULOSE 20Gm/30ML SOLN PO PRN (13:30)
[2020-08-26] MEDS ORDERED: ASPirin 81 mg TAB PO ONE (13:30)
[2020-08-26 13:59] LABS: Urine Bacteria NONE SEEN /hpf (None Seen); Urine Blood Negative /uL (Negative); Urine Specific Gravity 1.009 (1.001-1.035); Urine WBC <1 /hpf (0 - 3)
[2020-08-26] MEDS ORDERED: ALBUTEROL SULF 2.5 MG/0.5ML(0.5%) NEB SOLN ONE (14:10)
[2020-08-26 14:34] VITALS: BP 144/96
[2020-08-26] MEDS: SODIUM CHLOR 0.9% PF (SALINE LOCK) 10ML VIAL/SYR IV SCH ×2 (14:51→21:37)
[2020-08-26 15:25] VITALS: BP 124/89
[2020-08-26 17:00] VITALS: BP 124/89
[2020-08-26] MEDS: CARVEDILOL 3.125 MG TAB PO SCH (21:37)
[2020-08-26 22:00] VITALS: BP 143/82
[2020-08-27 05:00] VITALS: BP 123/85
[2020-08-27] MEDS: SODIUM CHLOR 0.9% PF (SALINE LOCK) 10ML VIAL/SYR IV SCH ×3 (05:53→21:47)
[2020-08-27 06:53] LABS: Basophils # (auto) 0.2 10 ^3/uL (0-0.2); Basophils % (auto) 1.1 % (0.0-2.0); Eosinophils # (auto) 0.4 10 ^3/uL (0-0.8); Eosinophils % (auto) 2.7 % (0.0-7.0); Hematocrit 40.1 % (41.0-53.0); Hemoglobin 13.5 g/dL (13.5-17.5); Lymphocytes # (auto) 2.2 10 ^3/uL (0.4-5.4); Mean Corpuscular Hemoglobin 28.6 pg (28.0-32.0); Mean Corpuscular Hgb Conc. 33.7 g/dL (32.0-36.0); Mean Corpuscular Volume 84.9 fL (80.0-100.0); Monocytes % (auto) 6.7 % (0.0-12.0); Neutrophils # (auto) 10.8 10 ^3/uL (1.6-8.6); Neutrophils % (auto) 74.5 % (37.0-80.0); Platelet Count (auto) 259 10^3/uL (140-450); Red Blood Cells 4.72 10^6/uL (4.5-5.90); Red Cell Distribution Width 14.7 % (11.8-14.3); White Blood Cell 14.4 10^3/uL (4.4-10.8)
[2020-08-27 07:07] LABS: Potassium 3.4 mmol/L (3.5-5.1)
[2020-08-27 07:16] LABS: Albumin 3.4 g/dL (3.4-5.0); BUN/Creatinine Ratio 12.6; Bilirubin, Total 1.4 mg/dL (0.2-1.0); Calcium 8.5 mg/dL (8.5-10.1); Total Protein 6.7 g/dL (6.4-8.2)
[2020-08-27 08:00] VITALS: BP 116/83
[2020-08-27 09:24] VITALS: BP 112/87
[2020-08-27] MEDS ORDERED: POTASSIUM CHL 20 Meq TABLET PO SCH (10:00)
[2020-08-27] MEDS: NITROGLYCERIN 0.2MG/HR TOPICAL PATCH TD SCH (10:00)
[2020-08-27] MEDS ORDERED: ENOXAPARIN SOD 40 MG/0.4 ML SYRINGE SC SCH (10:00)
[2020-08-27] MEDS: FUROSEMIDE 40 MG/4 ML VIAL IV SCH (10:02)
[2020-08-27] MEDS: levoFLOXacin 500MG 100 ML IV SCH (10:02)
[2020-08-27] MEDS: ASPirin 81 mg TAB PO SCH (10:02)
[2020-08-27] MEDS: CARVEDILOL 3.125 MG TAB PO SCH ×2 (10:03→21:55)
[2020-08-27] MEDS: ENALAPRIL MALEATE 2.5 MG TAB PO SCH (10:03)
[2020-08-27] MEDS ORDERED: POTASSIUM EFFERVESENT TAB 25 MEQ PO ONE (10:45)
[2020-08-27] MEDS ORDERED: DEXTROSE (50%) 50ML SYRG IV PRN (10:45)
[2020-08-27] MEDS ORDERED: ENOXAPARIN SOD 100 MG/1 ML SYRINGE SC ONE (10:45)
[2020-08-27] MEDS ORDERED: B CO PO (10:51)
[2020-08-27] MEDS ORDERED: INSLANTI SC (10:51)
[2020-08-27] MEDS: ACCU-CHEK COMFORT CURVE STRIP VI SCH ×3 (11:18→23:22)
[2020-08-27] MEDS: InsuLIN REG 1unit/0.01ml Soln (100units/ml) SC SCH ×3 (11:20→23:22)
[2020-08-27] MEDS ORDERED: SODIUM BICARBONATE 650 MG TAB PO ONE (12:00)
[2020-08-27] MEDS ORDERED: CYANOCOBALAMIN 500 MCG TAB PO ONE (12:00)
[2020-08-27] MEDS ORDERED: POTASSIUM CHL 20 Meq TABLET PO ONE (12:15)
[2020-08-27 13:00] VITALS: BP 123/87
[2020-08-27 16:44] VITALS: BP 117/81
[2020-08-27] MEDS: SODIUM BICARBONATE 650 MG TAB PO SCH (21:54)
[2020-08-27] MEDS: ENOXAPARIN SOD 150 MG/1 ML SYRINGE SC SCH (21:55)
[2020-08-27 22:00] VITALS: BP 111/73
[2020-08-28 05:00] VITALS: BP 104/74
[2020-08-28] MEDS: SODIUM CHLOR 0.9% PF (SALINE LOCK) 10ML VIAL/SYR IV SCH ×2 (05:45→16:59)
[2020-08-28] MEDS: ACCU-CHEK COMFORT CURVE STRIP VI SCH ×2 (05:46→12:08)
[2020-08-28] MEDS: InsuLIN REG 1unit/0.01ml Soln (100units/ml) SC SCH ×2 (05:52→12:16)
[2020-08-28 06:43] LABS: Basophils # (auto) 0.2 10 ^3/uL (0-0.2); Basophils % (auto) 1.4 % (0.0-2.0); Eosinophils # (auto) 0.4 10 ^3/uL (0-0.8); Eosinophils % (auto) 2.7 % (0.0-7.0); Hematocrit 40.7 % (41.0-53.0); Hemoglobin 13.7 g/dL (13.5-17.5); Lymphocytes # (auto) 2.6 10 ^3/uL (0.4-5.4); Mean Corpuscular Hemoglobin 28.7 pg (28.0-32.0); Mean Corpuscular Hgb Conc. 33.7 g/dL (32.0-36.0); Mean Corpuscular Volume 84.9 fL (80.0-100.0); Monocytes % (auto) 7.4 % (0.0-12.0); Neutrophils # (auto) 9.7 10 ^3/uL (1.6-8.6); Neutrophils % (auto) 69.5 % (37.0-80.0); Nucleated Red Blood Cells % 0.1 %; Platelet Count (auto) 280 10^3/uL (140-450); Red Blood Cells 4.79 10^6/uL (4.5-5.90); Red Cell Distribution Width 14.8 % (11.8-14.3); White Blood Cell 13.9 10^3/uL (4.4-10.8)
[2020-08-28] MEDS ORDERED: INSULIN LANTUS (GLARGINE) 1 /0.01ml (100units/ml) SC SCH (07:00)
[2020-08-28 07:03] LABS: Albumin 3.3 g/dL (3.4-5.0); Calcium 8.5 mg/dL (8.5-10.1); Potassium 3.8 mmol/L (3.5-5.1)
[2020-08-28 07:10] LABS: BUN/Creatinine Ratio 13.3; Bilirubin, Total 0.7 mg/dL (0.2-1.0); Total Protein 6.6 g/dL (6.4-8.2)
[2020-08-28 08:00] VITALS: BP 111/73
[2020-08-28 09:00] VITALS: BP 117/76
[2020-08-28] MEDS: SODIUM BICARBONATE 650 MG TAB PO SCH (09:11)
[2020-08-28] MEDS: ASPirin 81 mg TAB PO SCH (09:11)
[2020-08-28] MEDS: FUROSEMIDE 40 MG/4 ML VIAL IV SCH (09:11)
[2020-08-28] MEDS: CARVEDILOL 3.125 MG TAB PO SCH (09:12)
[2020-08-28] MEDS: ENALAPRIL MALEATE 2.5 MG TAB PO SCH (09:12)
[2020-08-28] MEDS: NITROGLYCERIN 0.2MG/HR TOPICAL PATCH TD SCH (09:13)
[2020-08-28] MEDS: ENOXAPARIN SOD 150 MG/1 ML SYRINGE SC SCH (09:13)
[2020-08-28] MEDS ORDERED: CYANOCOBALAMIN 500 MCG TAB PO SCH (10:00)
[2020-08-28] MEDS ORDERED: POTASSIUM EFFERVESENT TAB 25 MEQ PO SCH (10:00)
[2020-08-28] MEDS: levoFLOXacin 500MG 100 ML IV SCH (10:42)
[2020-08-28 13:00] VITALS: BP 107/85
[2020-08-28 13:48] VITALS: BP 117/76
[2020-08-28] MEDS ORDERED: APIXABAN 5 MG TAB PO SCH (22:00)
== END 2020-08-28 17:00 | disposition home or self-care (01) | DRG 190 ==
LOC: ER 11:59 → TELE 13:27 → TELE-EAST 15:40
PROVIDERS: ADMIT Internal Medicine; ATTEND Internal Medicine
DX: I21.A1 Myocardial infarction type 2 (principal); N17.0 Acute kidney failure with tubular necrosis; I50.43 Acute on chronic combined systolic (congestive) and diastolic (congestive) heart failure; J18.9 Pneumonia, unspecified organism; D68.69 Other thrombophilia; E11.22 Type 2 diabetes mellitus with diabetic chronic kidney disease; I13.0 Hypertensive heart and chronic kidney disease with heart failure and stage 1 through stage 4 chronic kidney disease, or unspecified chronic kidney disease; E66.01 Morbid (severe) obesity due to excess calories; I48.92 Unspecified atrial flutter; I48.0 Paroxysmal atrial fibrillation; Z79.01 Long term (current) use of anticoagulants; R06.03 Acute respiratory distress; N18.2 Chronic kidney disease, stage 2 (mild); J45.909 Unspecified asthma, uncomplicated; D72.829 Elevated white blood cell count, unspecified; E87.6 Hypokalemia; Z20.822 Contact with and (suspected) exposure to COVID-19; E11.9 Type 2 diabetes mellitus without complications; Z68.39 Body mass index [BMI] 39.0-39.9, adult; Z79.4 Long term (current) use of insulin; Z79.899 Other long term (current) drug therapy; Z82.49 Family history of ischemic heart disease and other diseases of the circulatory system; Z83.3 Family history of diabetes mellitus; Z86.16 Personal history of COVID-19; Z82.3 Family history of stroke
CPT/HCPCS: 36415; 71045; 78582; 80053; 81001; 82550; 82962; 83036; 83735; 83880; 84443; 84484; 85025; 85049; 87426; 93005; 93306; 94640; 96372; 96374; G0378; J1815; J1956